=== PATIENT | female | born 1985 | race African-American/Black ===

== ENCOUNTER 2018-01-09 16:51 | Inpatient (IN) ==
[2018-01-09] MEDS ORDERED: ONDANSETRON 4 MG/2 ML VIAL IV PRN (17:15)
[2018-01-09] MEDS ORDERED: DINOPROSTONE 10 MG VAG.INSERT VAG ONE (17:27)
[2018-01-09] MEDS ORDERED: BUTORPHANOL 2 MG/ML VIAL IV PRN (17:28)
[2018-01-09 17:47] LABS: Basophils % 0.2 % (0.0-0.8); Eosinophils # 0.1 10*3/uL (0.0-0.87); Eosinophils % 0.9 % (0.00-10.9); Hematocrit 35.6 VOL% (35.7-47.0); Hemoglobin 11.7 GM/DL (12.0-16.0); Immature Granulocytes % 1.3 %; Immature Granulocytes Absolute 0.11 #; Lymphocytes # 2.2 10*3/uL (1.4-4.0); Lymphocytes % 25.7 % (21.3-54.2); Mean Corpuscular HGB Conc 32.9 GM/DL (32-36); Mean Corpuscular Hemoglobin 27 PG (27-34); Mean Platelet Volume 12.5 FL (9.6-12.0); Monocytes # 0.7 10*3/uL (0.11-0.8); Monocytes % 7.7 % (1.7-12.7); Neutrophils # 5.5 10*3/uL (1.4-7.4); Neutrophils % 64.2 % (38.7-73.9); Platelet Count 159 T/CUMM (130-400); Red Blood Count 4.29 MC/CUMM (3.8-5.5); Red Cell Distribution Width 14.3 % (9.3-17.3); White Blood Count 8.5 T/CUMM (4-12)
[2018-01-09] MEDS: LACTATED RINGERS 1,000 ML IV SCH ×2 (17:56→22:09)
[2018-01-09] MEDS ORDERED: miSOPROStol 200 MCG TABLET ONE (21:39)
[2018-01-09] MEDS ORDERED: MEPERIDINE 50 MG/1 ML VIAL ONE (21:39)
[2018-01-09] MEDS ORDERED: OXYTOCIN/LR 20 UNIT/1,000 ML BAG IV ONE (21:39)
[2018-01-09] MEDS ORDERED: LIDOCAINE 1% 50 ML VIAL ONE (21:39)
[2018-01-09] MEDS ORDERED: METHYLERGONOVINE 0.2 MG/1 ML AMP ONE (21:40)
[2018-01-10] MEDS: LACTATED RINGERS 1,000 ML IV SCH ×4 (05:27→16:37)
[2018-01-10] MEDS ORDERED: OXYTOCIN/LR 20 UNIT/1,000 ML BAG IV SCH (06:00)
[2018-01-10] MEDS ORDERED: ePHEDrine 50 MG/ML AMP IV PRN (07:39)
[2018-01-10] MEDS ORDERED: hydrOXYzine HCL 25 MG/1 ML VIAL IM PRN ×2 (07:39→21:22)
[2018-01-10] MEDS ORDERED: PROMETHAZINE 25 MG/1 ML VIAL IM ONE (07:39)
[2018-01-10] MEDS ORDERED: diphenhydrAMINE 50 MG/1 ML VIAL IV PRN ×3 (07:39→21:22)
[2018-01-10] MEDS ORDERED: FAMOTIDINE 20 MG/2 ML VIAL IV ONE (07:40)
[2018-01-10] MEDS ORDERED: CITRIC ACID/SODIUM CITRATE 30 ML UDCUP PO ONE (07:40)
[2018-01-10] MEDS: fentaNYL 2 MCG/ROPIV 0.2% EPID 150 ML EPIDURAL SCH ×2 (08:30→16:40)
[2018-01-10 09:48] LABS: Apearance,Urine CLEAR (Clear); Bilirubin,Urine Negative (Negative); Blood, Urine Negative (Negative); Glucose,Urine (UA) Negative (Negative); Ketones,Urine Negative (Negative); Nitrite,Urine Negative (Negative); Protein,Urine Negative; RBC,Urine <1 /HPF (0-4); Urine Color Colorless (Yellow); Urine Specific Gravity 1.001 (1.001-1.035); Urine Urobilinogen < 2.0 EU/DL (0.2-1.0); WBC,Urine <1 /HPF (0-6)
[2018-01-10] MEDS ORDERED: DEXTROSE 5% LACTATED RINGERS 1,000 ML IV SCH (19:40)
[2018-01-10 20:57] LABS: Cord Arterial Blood HCO3 24.4 MMOL/L
[2018-01-10 21:01] LABS: Cord Venous Blood HCO3 21.3 MMOL/L; Cord Venous Blood PCO2 57.1 MMHG; Cord Venous Blood PO2 25.2 MMHG
[2018-01-10] MEDS ORDERED: ONDANSETRON 4 MG/2 ML VIAL IV PRN (21:22)
[2018-01-10] MEDS ORDERED: HYDROmorphone 2 MG/1 ML VIAL IV PRN (21:22)
[2018-01-10] MEDS ORDERED: MIDAZOLAM 2 MG/2 ML VIAL ONE (21:26)
[2018-01-10] MEDS ORDERED: fentaNYL 100 MCG/2 ML VIAL ONE (21:26)
[2018-01-10] MEDS ORDERED: MORPHINE 10 MG/10 ML VIAL ONE (21:26)
[2018-01-10] MEDS ORDERED: DEXTROSE 50% 25 GM/50 ML VIAL IV PRN (22:34)
[2018-01-10] MEDS ORDERED: MAGNESIUM HYDROXIDE SUSP 30 ML UDCUP PO PRN (22:34)
[2018-01-10] MEDS ORDERED: DEXTROSE 5% 1,000 ML IV SCH (22:34)
[2018-01-10] MEDS ORDERED: GLUCAGON 1 MG VIAL IM PRN (22:34)
[2018-01-10] MEDS ORDERED: RHO(D) IMMUNE GLOBULIN 300 MCG SYRINGE IM ONE (23:00)
[2018-01-11] MEDS: INSULIN REGULAR 100 UNIT/ML SUBCUT SCH ×3 (03:39→18:53)
[2018-01-11 06:28] LABS: Basophils % 0.2 % (0.0-0.8); Eosinophils % 0.2 % (0.00-10.9); Hematocrit 35.6 VOL% (35.7-47.0); Hemoglobin 12.1 GM/DL (12.0-16.0); Immature Granulocytes % 0.7 %; Immature Granulocytes Absolute 0.09 #; Lymphocytes # 2.2 10*3/uL (1.4-4.0); Lymphocytes % 16.3 % (21.3-54.2); Mean Corpuscular Hemoglobin 28 PG (27-34); Mean Corpuscular Volume 81.5 FL (87-102); Mean Platelet Volume 12.6 FL (9.6-12.0); Monocytes # 0.9 10*3/uL (0.11-0.8); Monocytes % 6.7 % (1.7-12.7); Neutrophils % 75.9 % (38.7-73.9); Platelet Count 153 T/CUMM (130-400); Red Blood Count 4.37 MC/CUMM (3.8-5.5); Red Cell Distribution Width 14.4 % (9.3-17.3); White Blood Count 13.2 T/CUMM (4-12)
[2018-01-11] MEDS: MULTIVITAMIN (PRENATAL) TABLET PO SCH (09:30)
[2018-01-11] MEDS: DOCUSATE SODIUM 100 MG CAPSULE PO SCH ×2 (09:30→21:52)
[2018-01-11] MEDS: SIMETHICONE CHEW 80 MG TABLET PO PRN ×2 (09:31→21:52)
[2018-01-11] MEDS: IBUPROFEN 800 MG TABLET PO SCH ×3 (18:54→22:58)
[2018-01-12] MEDS: IBUPROFEN 800 MG TABLET PO SCH ×4 (04:05→22:54)
[2018-01-12] MEDS: DOCUSATE SODIUM 100 MG CAPSULE PO SCH ×2 (08:34→21:38)
[2018-01-12] MEDS: INSULIN REGULAR 100 UNIT/ML SUBCUT SCH ×3 (13:30→21:00)
[2018-01-12] MEDS: MULTIVITAMIN (PRENATAL) TABLET PO SCH (16:46)
[2018-01-13] MEDS: IBUPROFEN 800 MG TABLET PO SCH ×2 (04:18→11:51)
[2018-01-13] MEDS: DOCUSATE SODIUM 100 MG CAPSULE PO SCH (08:30)
[2018-01-13] MEDS: MULTIVITAMIN (PRENATAL) TABLET PO SCH (08:30)
[2018-01-13] MEDS: INSULIN REGULAR 100 UNIT/ML SUBCUT SCH (08:31)
[2018-01-13 12:12] VITALS: BP 140/84
[2018-01-13] MEDS ORDERED: DIPH/TET/ACEL PERT BOOSTER VACCINE 0.5 ML VIAL IM ONE (12:20)
== END 2018-01-13 13:10 | disposition home or self-care (01) | DRG 540 ==
LOC: N.LDOUT 16:51 → N.LD 16:54 → N.OB 01-11 11:35
PROVIDERS: ADMIT Obstetrics & Gynecology; ATTEND Obstetrics & Gynecology
PROC: LDCSECT (ICD-10-PCS; 2018-01-10 17:00)